=== PATIENT | male | born 1980 | race African-American/Black ===

== ENCOUNTER 2020-09-27 16:33 | Emergency (ER) | payer MEDICAID ==
[~2020-09-27] VITALS: Ht 177.8 cm; Wt 90.0 kg
[2020-09-27 17:37] VITALS: BP 145/112
== END 2020-09-27 17:38 | disposition home or self-care (01) ==
LOC: ER 16:35
DX: F15.10 Other stimulant abuse, uncomplicated (principal); Z00.01 Encounter for general adult medical examination with abnormal findings
CPT/HCPCS: 99281

== ENCOUNTER 2020-11-08 08:06 | Emergency (ER) | payer BC, MEDICAID ==
[~2020-11-08] VITALS: Ht 177.8 cm; Wt 92.3 kg
[2020-11-08 08:22] VITALS: BP 157/105
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
[2020-11-08] MEDS ORDERED: CEPH250T PO (09:25)
[2020-11-08] MEDS ORDERED: cephalexin 500mg capsule PO ONE (09:30)
== END 2020-11-08 09:50 | disposition home or self-care (01) ==
LOC: ER 08:07
DX: S61.011D Laceration without foreign body of right thumb without damage to nail, subsequent encounter (principal); Z48.02 Encounter for removal of sutures; Z79.2 Long term (current) use of antibiotics; W26.0XXD Contact with knife, subsequent encounter
CPT/HCPCS: 99283

== ENCOUNTER 2021-07-07 02:39 | Emergency (ER) | payer BC, MEDICAID ==
[~2021-07-07] VITALS: Ht 177.8 cm; Wt 86.4 kg
[2021-07-07 02:42] VITALS: BP 188/103
[2021-07-07] MEDS ORDERED: PENICILLIN G BENZATHINE 2,400,000 UNIT/4 ML SYRINGE IM ONE (03:10)
[2021-07-07] MEDS ORDERED: metroNIDAZOLE 500mg tablet PO ONE (03:10)
[2021-07-07] MEDS ORDERED: CefTRIAXone 250MG IM Kit w/LIDOcaine IM ONE (03:10)
[2021-07-07] MEDS ORDERED: azithromycin 250mg tablet PO ONE (03:10)
--- NOTE | 2021-07-07 03:18 | NUR ---
asymptomatic pt here for testing for STDs.
[2021-07-07 03:38] LABS: CLARITY,URINE CLEAR (Clear); COLOR,URINE YELLOW (Yellow); GLUCOSE, URINE NEGATIVE (Neg); KETONES,URINE NEGATIVE (Neg); LEUKOCYTE ESTERASE ,URINE NEGATIVE (Neg); NITRITES, URINE NEGATIVE (Neg); OCCULT BLOOD,URINE NEGATIVE (Neg); PROTEIN,URINE NEGATIVE (Neg); UA COLLECTION TYPE VOIDED; UROBILINOGEN,URINE 0.2 E.U/dL (0.2-1.0)
== END 2021-07-07 04:00 | disposition home or self-care (01) ==
LOC: ER 03:39
DX: A64 Unspecified sexually transmitted disease (principal)
CPT/HCPCS: 36415; 81003; 86592; 87491; 87591; 96372; 99284; J0561; J0696; J3490

== ENCOUNTER 2025-09-01 13:35 | Emergency (ER) | payer MEDICARE, MEDICAID ==
[~2025-09-01] VITALS: Ht 177.8 cm; Wt 92.9 kg
[2025-09-01 13:37] VITALS: BP 174/113; PULSE 69; RESP 16; TEMP 98; O2SAT 99
[2025-09-01] MEDS ORDERED: LISI10TA27 PO (21:25)
== END 2025-09-01 14:53 | disposition left against medical advice (07) ==
LOC: ER 13:36
DX: I10 Essential (primary) hypertension (principal); Z53.21 Procedure and treatment not carried out due to patient leaving prior to being seen by health care provider
CPT/HCPCS: 99281

== ENCOUNTER 2025-09-01 19:04 | Emergency (ER) | payer MEDICARE, MEDICAID ==
[~2025-09-01] VITALS: Ht 177.8 cm; Wt 93.2 kg
--- NOTE | 2025-09-01 21:13 | Physician Documentation ---
History of Present Illness ~ Chief Complaint: Medical Clearance Stated Complaint: BLOOD PRESSURE Time Seen by MD: 21:12 OK to notify your PCP?: Yes Source: patient, RN/ HPI Patient is seen today with complaints of elevated blood pressure without symptoms. Patient is asymptomatic and denies any headache or chest pain or shortness of breath or abdominal pain or nausea, vomiting, diarrhea. Patient does admit to history of hypertension and was previously on a low dose lisinopril. Patient has no other concern or complaint at this time. Tetanus within 5 years?: Yes Medication Reconciliation Allergies: Coded Allergies: No Known Allergies (Unverified , 07/07/21) Past Medical History Past Medical History: No Pertinent History Past Surgical History: no surgical history Alcohol Use: None Drug Use: none Lives In: Home Review of Systems Constitutional: Denies: chills, fever, weakness Eyes: Denies: pain, blurred vision ENT: Denies: ear pain, nose pain, throat pain, mouth pain Respiratory: Denies: cough, shortness of breath Cardiovascular: Denies: chest pain, palpitations Gastrointestinal: Denies: abdominal pain, nausea, vomiting Genitourinary: Denies: burning, dysuria Male Genitalia: Denies: penile discharge, testicular pain Neurological: Denies: headache, dizziness Musculoskeletal: Denies: pain, swelling Integumentary: Denies: rash, lesions Allergic/Immunologic: Denies: hives, itching Hematologic/Lymphatic: Denies: no symptoms reported Psychiatric: Denies: depression, anxiety Physical Exam Vital Signs: Temperature: 97.2, Source: Oral, Heart Rate: 76, Respiratory Rate: 17, BP: 188/113, Pulse Oximetry: 100, Weight: 93.180 Oxygen Flow Rate: 0 Physical Exam General: Awake and Alert, no acute distress. HEENT: Conjunctiva pink, Sclera clear, Mucus Membranes moist. Neck: Supple without masses and tenderness. Resp: Unlabored. Lungs clear to auscultation bilaterally. Heart: Regular Rate and rhythm, normal S1 and S2 without murmur, rub or gallop. Abdomen: Soft and non tender no organomegaly Extremities: No cyanosis,clubbing or edema. Skin: Warm and Dry. Progress Results/Orders Results/Orders Orders - NYLA DEJESUS PAC Clonidine Tablet (Catapres Tablet) (09/01/25 21:12) Vital Signs 09/01/25 19:21 Temp 97.2 Pulse 76 Resp 17 B/P (MAP) 188/113 Pulse Ox 100 O2 Flow Rate 0 Medical Decision Making Additional information obtaine: N/A Findings Patient is seen today with complaints of elevated blood pressure without symptoms. Patient is asymptomatic and denies any headache or chest pain or shortness of breath or abdominal pain or nausea, vomiting, diarrhea. Patient does admit to history of hypertension and was previously on a low dose lisinopril. Patient has no other concern or complaint at this time. Patient is medically cleared to return to [facility]. Patient was given dose of clonidine 0.2 mg by mouth as well as prescription for lisinopril 10 mg one tab by mouth once a day for 30 days patient will follow up with primary care for refill of this prescription and re-evaluation. Patient will check blood pressure once a day and keep a blood pressure diary/log to monitor blood pressures closely. Return to ED with any worsening, concerning or changing symptoms Differential Dx:Considerations: Include: Intoxication-Alcohol, Intoxication- Other drug, Personality disorder, Substance abuse disorder Departure Disposition: 01 HOME / SELF CARE / HOMELESS Impression: Primary Impression: Methamphetamine abuse Additional Impression: Hypertension Qualified Codes: I10 - Essential (primary) hypertension Condition: Stable Discharge Instructions: Hypertension, Adult, [id number], Medical Screening Exam Additional Instructions: Patient is medically cleared to return to [facility]. Patient was given dose of clonidine 0.2 mg by mouth as well as prescription for lisinopril 10 mg one tab by mouth once a day for 30 days patient will follow up with primary care for refill of this prescription and re-evaluation. Patient will check blood pressure once a day and keep a blood pressure diary/log to monitor blood pressures closely. Return to ED with any worsening, concerning or changing symptoms Referrals: NO PRIMARY CARE PROVIDER (PCP) Prescriptions Lisinopril (LISINOPRIL) 10 Mg Tablet 1 TAB PO DAILY for 30 Days, #30 TAB 0 Refills Prov: NYLA DEJESUS 09/01/25 Signature Scribe Signature: No scribe Attestation: No scribe NYLA DEJESUS Sep 01, 2025 21:13
[2025-09-01] MEDS ORDERED: LISI10TA27 PO (21:25)
[2025-09-01 21:34] VITALS: BP 172/99; PULSE 78; RESP 18; TEMP 98.6; O2SAT 99
== END 2025-09-01 21:35 | disposition home or self-care (01) ==
LOC: ER 19:05
DX: I10 Essential (primary) hypertension (principal); F15.10 Other stimulant abuse, uncomplicated
CPT/HCPCS: 99283

== ENCOUNTER 2025-09-05 09:02 | Emergency (ER) | payer MEDICARE, MEDICAID ==
[~2025-09-05] VITALS: Ht 177.8 cm; Wt 92.3 kg
[~2025-09-05 09:02] MED LIST: LISI10TA27 PO
[2025-09-05 09:16] VITALS: BP 155/92; PULSE 78; RESP 16; TEMP 98.5; O2SAT 100
--- NOTE | 2025-09-05 09:28 | Physician Documentation ---
History of Present Illness ~ Chief Complaint: Medical Clearance Stated Complaint: MED CLEARANCE Time Seen by MD: 09:16 Source: patient Mode of Arrival: POV Exam Limitations: no limitations HPI 45-year-old male requiring medical clearance [facility] patient is currently 2 weeks sober from meth. No acute concerns Tetanus within 5 years?: Yes Medication Reconciliation Allergies: Coded Allergies: No Known Allergies (Unverified , 09/05/25) Scheduled Lisinopril (Lisinopril), 1 TAB PO DAILY Past Medical History Past Medical History: No Pertinent History Past Surgical History: no surgical history Alcohol Use: None Drug Use: none Lives In: Home Review of Systems All Other Systems at this time: Reviewed and Negative Constitutional: Reports: see HPI Physical Exam Vital Signs: RN Vital Signs have been reviewed: Yes, Temperature: 98.5, Source: Oral, Heart Rate: 78, Respiratory Rate: 16, BP: 155/92, Pulse Oximetry: 100, Weight: 92.270 Oxygen Flow Rate: 0 Physical Exam General: Alert, no apparent distress. HEENT: PERRL, EOMI, no injection, moist mucous membranes. Neck: Full range of motion. Respiratory: Lungs clear, no respiratory distress. Chest: No accessory muscle use. Cardiovascular: Regular rate and rhythm, no murmurs. Extremities: Normal range of motion, no deformity. Neurologic: Oriented x4. Psychiatric: Normal mood and affect. Skin: Normal color, warm and dry. No edema, no ecchymosis. Progress Results/Orders Results/Orders Vital Signs 09/05/25 09:16 Temp 98.5 Pulse 78 Resp 16 B/P (MAP) 155/92 Pulse Ox 100 O2 Flow Rate 0 Medical Decision Making Additional information obtaine: N/A Findings Patient requiring medical clearance for sobriety. Differential Dx:Considerations: Include: Medically stable Departure Time of Disposition: 09:28 Disposition: 01 HOME / SELF CARE / HOMELESS Impression: Primary Impression: General medical exam Condition: Stable Discharge Instructions: Medical Screening Exam Additional Instructions: Patient is medically cleared for rehab Referrals: NO PRIMARY CARE PROVIDER (PCP) Education Educated: Patient Educated regarding: diagnosis, treatment, need for follow up Signature Scribe Signature: No scribe Attestation: The note accurately reflects work and decisions made by me.Theresa SHARIF 09/05/25 09:28 THERESA STODDARD NP Sep 05, 2025 09:28
== END 2025-09-05 09:38 | disposition home or self-care (01) ==
LOC: ER 09:03
DX: Z00.00 Encounter for general adult medical examination without abnormal findings (principal); Z79.899 Other long term (current) drug therapy
CPT/HCPCS: 99282

== ENCOUNTER 2025-09-10 14:29 | Emergency (ER) | payer MEDICARE, MEDICAID ==
[~2025-09-10] VITALS: Ht 177.8 cm; Wt 92.3 kg
[2025-09-10 14:34] VITALS: BP 159/93; PULSE 80; RESP 16; TEMP 80; O2SAT 99
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
[2025-09-10] MEDS ORDERED: AMOX-580 PO (15:24)
[2025-09-10] MEDS: amox tr/potassium clavulanate 875/125mg TAB PO ONE (15:34)
== END 2025-09-10 15:38 | disposition home or self-care (01) ==
LOC: ER 14:30
DX: S01.511A Laceration without foreign body of lip, initial encounter (principal); Z79.899 Other long term (current) drug therapy; Y04.8XXA Assault by other bodily force, initial encounter; Y93.89 Activity, other specified; Y92.89 Other specified places as the place of occurrence of the external cause; Y99.8 Other external cause status
CPT/HCPCS: 99283

== ENCOUNTER 2025-10-15 07:29 | Emergency (ER) | payer MEDICARE, MEDICAID ==
[~2025-10-15] VITALS: Ht 177.8 cm; Wt 91.7 kg
--- NOTE | 2025-10-15 07:49 | Physician Documentation ---
History of Present Illness ~ Chief Complaint: Medical Clearance Stated Complaint: HIGH BLOOD PRESSURE Time Seen by MD: 07:39 HPI Here for medical clearance for detox facility. Tetanus within 5 years?: Yes Medication Reconciliation Allergies: Coded Allergies: No Known Allergies (Unverified , 09/05/25) Scheduled Lisinopril (Lisinopril), 1 TAB PO DAILY Past Medical History Past Medical History: No Pertinent History Past Surgical History: no surgical history Alcohol Use: None Drug Use: none Lives In: Home Review of Systems All Other Systems at this time: Reviewed and Negative Physical Exam Vital Signs: Temperature: 97.5, Source: Temporal, Heart Rate: 90, Respiratory Rate: 18, BP: 142/108, Pulse Oximetry: 100, Weight: 91.700 Oxygen Flow Rate: 0 Physical Exam Gen: no distress HEENT: PERRL, EOMI Pulm: no distress Cardiac: deferred Abdomen: deferred MSK: no deformity Skin: w/d/i Neuro: nonfocal Psych: unremarkable Progress Results/Orders Results/Orders Vital Signs 10/15/25 07:33 Temp 97.5 Pulse 90 Resp 18 B/P (MAP) 142/108 Pulse Ox 100 O2 Flow Rate 0 Medical Decision Making Additional information obtaine: N/A Findings Medically clear for inpatient facility. Differential Dx:Considerations: Include: Other Differential Diagnosis Ddx = medical clearance Departure Disposition: 01 HOME / SELF CARE / HOMELESS Impression: Primary Impression: General medical exam Condition: Stable Discharge Instructions: Medical Screening Exam Referrals: NO PRIMARY CARE PROVIDER (PCP) Education Educated: Patient Signature Scribe Signature: . Attestation: . FERDINAND GUARDADO MD Oct 15, 2025 07:49
[2025-10-15] MEDS ORDERED: LISI20TA28 PO (07:53)
[2025-10-15] MEDS ORDERED: AMIT10TA13 PO (07:56)
[2025-10-15] MEDS ORDERED: DOXY-224 PO (07:56)
[2025-10-15 08:10] VITALS: BP 143/98; PULSE 78; RESP 20; TEMP 98.2; O2SAT 96
== END 2025-10-15 08:14 | disposition home or self-care (01) ==
LOC: ER 07:29
DX: Z00.00 Encounter for general adult medical examination without abnormal findings (principal); Z79.899 Other long term (current) drug therapy
CPT/HCPCS: 99282

== ENCOUNTER 2025-10-26 15:24 | Emergency (ER) | payer MEDICARE, MEDICAID ==
[~2025-10-26] VITALS: Ht 170.2 cm; Wt 93.6 kg
[~2025-10-26 15:24] MED LIST changes: +AMIT10TA13 PO; +DOXY-224 PO; -LISI10TA27 PO; +LISI20TA28 PO
[2025-10-26 15:36] VITALS: TEMP 98.6
--- NOTE | 2025-10-26 16:03 | RADIOLOGY REPORT ---
EXAM: DI CHEST,SINGLE VIEW HISTORY: CP TECHNIQUE: 1 view of the chest COMPARISON: None FINDINGS/IMPRESSION: LUNGS: No pleural effusion, consolidation, or pneumothorax. MEDIASTINUM: Unremarkable. BONES: No acute osseous abnormality. OTHER: None.
[2025-10-26 16:05] LABS: MEAN PLATELET VOLUME 7.4 FL (7.4-10.4); RED CELL DISTRIBUTION WIDTH 12.7 % (11.5-14.5)
[2025-10-26 16:19] LABS: CREATININE 1.17 MG/DL (0.60-1.10); PRO BRAIN NATRIURETIC PEPTIDE 32 PG/ML (0-125); TOTAL CARBON DIOXIDE 29.0 MMOL/L (24-32); eCRCL 75 ML/MIN; eGFR 82 ML/MIN
--- NOTE | 2025-10-26 17:35 | Physician Documentation ---
History of Present Illness ~ Chief Complaint: Hypertension Stated Complaint: BP CHECK Time Seen by MD: 16:09 Source: patient Mode of Arrival: POV, Other Exam Limitations: no limitations HPI Patient presents secondary to headache, hypertension on and off. He states his blood pressures usually in the 140s systolically. He is having his blood pressure medications adjusted with his primary care provider. Recently, his lisinopril was increased from 10 mg daily to 20 mg daily. He complains of right-sided chest pain that is worse with movement and palpation. States that he has been working on arms and chest recently in his workout routine. He also complains of frontal headache in the front of his head and temporal region described as intermittent. Usually takes aspirin for his headaches. 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 Medication Reconciliation Allergies: Coded Allergies: No Known Allergies (Unverified , 10/26/25) Scheduled Amitriptyline HCl (Amitriptyline HCl), 1 TAB PO HS, (Reported) Doxycycline Hyclate (Doxycycline Hyclate), 1 CAP PO BID, (Reported) Lisinopril (Lisinopril), 1 TAB PO DAILY, (Reported) Past Medical History Past Medical History: Hypertension Past Surgical History: no surgical history Alcohol Use: None Drug Use: none, methamphetamine (History of. Reports 60 days sober) Lives In: Home Occupation: employed Review of Systems ROS Review of systems negative except documented in HPI. Physical Exam Vital Signs: RN Vital Signs have been reviewed: Yes, Temperature: 98.6, Source: Temporal, Heart Rate: 65, Respiratory Rate: 16, BP: 151/100, Pulse Oximetry: 99, Weight: 93.600 Oxygen Flow Rate: 0 Pulse Oximetry Reflects: adequate oxygenation Physical Exam General: Awake, alert, oriented. No apparent distress Neck: Supple. Normal range of motion. No JVD Respiratory: Lungs are clear to auscultation bilaterally. No respiratory distress. Chest: Normal shape and size. No accessory muscle use. Pain with palpation over the right chest wall. Cardiovascular: Regular rate and rhythm. S1-S2. No murmur, gallop, rub. Gastrointestinal: Abdomen is soft. Nontender to palpation. Bowel sounds present. Extremities: No lower extremity edema, cyanosis or clubbing. Neurologic: Alert and oriented x4. Nonfocal Psychiatric: Normal mood and affect. Skin: Normal color. Warm and dry. Progress Results/Orders Results/Orders Vital Signs 10/26/25 10/26/25 10/26/25 10/26/25 15:36 16:11 17:01 19:19 Temp 98.6 Pulse 68 65 76 Resp 15 16 16 12 B/P (MAP) 154/103 151/100 (117) 152/103 Pulse Ox 98 99 99 O2 Flow Rate 0 Laboratory Tests Test 10/26/25 15:49 10/26/25 17:59 10/26/25 19:13 White Blood Count 8.5 Red Blood Count 4.54 L Hemoglobin 14.3 Hematocrit 42.7 Mean Corpuscular Volume 94.2 Mean Corpuscular Hemoglobin 31.5 H Mean Corpuscular Hemoglobin Concent 33.4 Red Cell Distribution Width 12.7 Platelet Count 327 Mean Platelet Volume 7.4 Neutrophils (%) (Auto) 59.5 Lymphocytes (%) (Auto) 31.6 Monocytes (%) (Auto) 7.1 Eosinophils (%) (Auto) 1.3 Basophils (%) (Auto) 0.5 Neutrophils # (Auto) 5.0 Lymphocytes # (Auto) 2.7 Monocytes # (Auto) 0.6 Eosinophils # (Auto) 0.1 Basophils # (Auto) 0.0 CBC Comment Sodium Level 142 Potassium Level 3.9 Chloride Level 105 Carbon Dioxide Level 29.0 Anion Gap 8 Blood Urea Nitrogen 18 Creatinine 1.17 H Estimated GFR/1.73 m2 82 BUN/Creatinine Ratio 15.4 Glucose Level 79 Calcium Level 8.8 Troponin I High Sensitivity 5 5 6 Pro-B-Type Natriuretic Peptide 32 Albumin 3.8 Chemistry Comments Troponin I High Sens Percent Delta 0 20 Troponin I Hi Sens Absolute Change 0 1 EKG/XRAY/CT/US/VASC/MRI EKG : Intepreting Monitor?: Yes Indication: chest pain, other EKG: NSR EKG Blocks: none [place]: normal Hypertrophy: none Additional Comment EKG normal sinus rhythm rate of 82. Poor R-wave progression. No acute ST changes. Chest X-Ray : Views: 1 VIEW Indication: ALOC/confusion Lungs: normal Mediastinum: normal Ribs/Bones: normal Abdomen: normal Impression: no acute disease Additional Comments [facility] [address], [place], [place] - [address] DIAGNOSTIC RADIOLOGY Patient: CHAR SWANSON Medical Record: [id number] [facility] : 1980, Age: 45 Sex: Male Location: ER Patient Status: REG ER Service Date/Time: 10/26/25/ 1553 Ordering Physician: EMILY LÓPEZ MD Exam: CHEST,SINGLE VIEW EXAM: DI CHEST,SINGLE VIEW HISTORY: CP TECHNIQUE: 1 view of the chest COMPARISON: None FINDINGS/IMPRESSION: LUNGS: No pleural effusion, consolidation, or pneumothorax. MEDIASTINUM: Unremarkable. BONES: No acute osseous abnormality. OTHER: None. Electronically Signed by:KAVON APONTE MD Date & Time: 10/26/25 1601 Dictated by: KAVON APONTE MD Dictation date and time: 10/26/25 1550 Primary Care Provider: NO PRIMARY CARE PROVIDER cc: EMILY LÓPEZ MD ~ Heart Score: Heart Score Response (Comments) Value History Slightly Suspicious 0 EKG Normal 0 Age <45 0 Risk Factors No known risk factors 0 Troponin Normal limit 0 Total 0 Medical Decision Making Additional information obtaine: old records Findings Patient presents secondary to hypertension and chest pain. Chest pain is in the right chest associated with movement after a workout. He had had 3 neg troponins. Low clinical suspicion for ACS. Pressure is elevated. He does have history of hypertension in his on lisinopril. His medications are being adjusted by his primary care provider. His lisinopril was recently increased. No indication to increase medications currently as they are being adjusted with his primary care provider. Otherwise he is well appearing. He is not hypoxic. His CBC, BMP, troponins, chest x-ray and EKG were reviewed by myself. Being discharged home in stable condition. Previous ER visits reviewed. Differential Dx:Considerations: Include CHF, Include HTN, essential, Include HTN, accelerated, Include medical noncompliance, Include medication withdrawal, Include other Departure Time of Disposition: 19:02 Disposition: 01 HOME / SELF CARE / HOMELESS Impression: Primary Impression: Benign hypertension Additional Impression: Chest wall pain Additional Instructions: Laboratory evaluation for a heart attack was normal. Your EKG was also reassuring. I suspect that the chest pain that you are experiencing is secondary to exercise. Your blood pressure was elevated. Your primary care provider has recently adjusted your medications. I recommend that you continue to follow up with that person for further up titration of your medications as needed. Continue to not use methamphetamine this will also help your symptoms and your blood pressure. Stay well hydrated. Avoid excessive caffeine. Recommend low-sodium diet. Recommend ibuprofen or Tylenol for minor pain or fever including headache. Return for new or worsening symptoms. Departure Forms: Excuse form Work or School Excused From: Work Excuse beginning now through the following date: Oct 26, 2025 May Return but still avoid physical Activity from now until: Oct 27, 2025 Referrals: NO PRIMARY CARE PROVIDER (PCP) Education Educated: Patient Educated regarding: diagnosis, treatment, need for follow up Signature Scribe Signature: No scribe Attestation: The note accurately reflects work and decisions made by me.Estefania Madrigal - SOFÍA 10/26/25 21:17 This note was created with the assistance of voice recognition software whereby errors in grammar, syntax, and/or spelling may have occurred despite active proofreading efforts by the author. Please do not hesitate to contact the provider for clarification or for questions regarding the content of this document. ESTEFANIA MADRIGAL NP Oct 26, 2025 17:34
[2025-10-26 19:19] VITALS: BP 152/103; PULSE 76; RESP 12; O2SAT 99
--- NOTE | 2025-10-27 05:59 | ELECTROCARDIOGRAPH REPORT ---
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 Everardo Boykin Measurements Intervals [place] Rate: 82 P: 60 SC: 142 QRS: 24 QRSD: 102 T: 44 QT: 391 QTc: 457 Interpretive Statements Sinus rhythm Probable left atrial enlargement RSR' in V1 or V2, probably normal variant Left ventricular hypertrophy ST elev, probable normal early repol pattern Electronically Signed On 10-29-2025 21:15:[address] Everardo Boykin Please click the below link to view image of tracing.
== END 2025-10-26 19:20 | disposition home or self-care (01) ==
LOC: ER 15:25
DX: I10 Essential (primary) hypertension (principal); R07.89 Other chest pain; F15.90 Other stimulant use, unspecified, uncomplicated; Z79.82 Long term (current) use of aspirin; Z79.899 Other long term (current) drug therapy
CPT/HCPCS: 36415; 71045; 80048; 83880; 84484; 85025; 93005; 99285